=== PATIENT | female | born 1990 | race Caucasian/White ===

== ENCOUNTER 2017-09-22 11:25 | Emergency (ER) | payer OTHER ==
[2017-09-22 14:23] VITALS: BP 125/84
--- NOTE | 2017-09-22 14:55 | UC ---
Respiratory Complaint HPI - HPI Summary HPI Summary: 27 year old female presents with cough and chest congestion. - History of Current Complaint Chief Complaint: UCGeneralIllness Stated Complaint: DX W/WALKING PNEUMONIA, NOT FEELING BETTER Time Seen by Provider: 09/22/17 14:55 Hx Obtained From: Patient Hx Last Menstrual Period: UTERINE ABLASION Onset/Duration: Sudden Onset Severity Initially: Moderate Severity Currently: Moderate - Allergies/Home Medications Allergies/Adverse Reactions: Allergies Allergy/AdvReac Type Severity Reaction Status Date / Time No Known Allergies Allergy Verified 09/22/17 14:23 PMH/Surg Hx/FS Hx/Imm Hx Previously Healthy: Yes - Surgical History Surgical History: Yes Surgery Procedure, Year, and Place: D&C, T&A, UTERINE ABLASION, TUBALIGATION - Social History Alcohol Use: Rare Substance Use Type: None Smoking Status (MU): Never Smoked Tobacco - Immunization History Most Recent Influenza Vaccination: NOT CURRENT Review of Systems Constitutional: Negative Skin: Negative Eyes: Negative ENT: Negative Respiratory: Cough Cardiovascular: Negative Gastrointestinal: Negative Genitourinary: Negative Motor: Negative Neurovascular: Negative Musculoskeletal: Negative Neurological: Negative Psychological: Negative All Other Systems Reviewed And Are Negative: Yes Physical Exam Triage Information Reviewed: Yes Vital Signs: Initial Vital Signs Temp 36.6 C 09/22/17 14:19 Pulse 79 09/22/17 14:19 Resp 18 09/22/17 14:19 BP 125/84 09/22/17 14:19 Pulse Ox 100 09/22/17 14:19 Vital Signs Reviewed: Yes Eye Exam: Normal ENT Exam: Normal Dental Exam: Normal Neck exam: Normal Neck: Positive: 1 Respiratory: Positive: Rhonchi, Wheezing Cardiovascular Exam: Normal Abdominal Exam: Normal Musculoskeletal Exam: Normal Neurological Exam: Normal Psychological Exam: Normal Skin Exam: Normal UC Diagnostic Evaluation - Laboratory O2 Sat by Pulse Oximetry: 100 Respiratory Course/Dx - Differential Dx/Diagnosis Provider Diagnoses: bronchitis Discharge - Discharge Plan Condition: Stable Disposition: HOME Prescriptions: Albuterol HFA INHALER* [Ventolin HFA Inhaler*] 1 puff INH Q6H PRN #1 mdi PRN Reason: Wheezing Benzonatate [TESSALON 200 MG CAP] 200 mg PO Q8H PRN #30 cap PRN Reason: Cough guaiFENesin/CODIEN 100MG-10MG* [Robitussin AC 100Mg-10Mg*] 5 ml PO Q8H PRN #120 ml MDD 15 ML PRN Reason: Wheezing LoraTADine TAB(NF) [Claritin 10 MG TAB(NF)] 10 mg PO DAILY #30 tab Patient Education Materials: Acute Cough (ED), Wheezing (ED) Referrals: Bree Bender MD [Primary Care Provider] -
--- NOTE | 2017-09-22 15:22 | RAD ---
HISTORY: Cough COMPARISONS: October 29, 2012 VIEWS: 4: Frontal dual-energy and lateral views of the chest. FINDINGS: CARDIOMEDIASTINAL SILHOUETTE: The cardiomediastinal silhouette is normal. BRANDEN: The branden are normal. PLEURA: The costophrenic angles are sharp. No pleural abnormalities are noted. LUNG PARENCHYMA: The lungs are clear. ABDOMEN: The upper abdomen is clear. There is no subphrenic gas. BONES AND SOFT TISSUES: No bone or soft tissue abnormalities are noted. OTHER: None. IMPRESSION: NO ACTIVE CARDIOPULMONARY DISEASE.
== END 2017-09-22 15:58 | disposition home or self-care (01) ==
LOC: UCCORT 11:25
DX: J40 Bronchitis, not specified as acute or chronic (principal)
CPT/HCPCS: 71020; 99212; G0463

== ENCOUNTER 2019-04-28 15:54 | Emergency (ER) | payer OTHER ==
[2019-04-28 16:11] VITALS: BP 128/84
--- NOTE | 2019-04-28 16:21 | UC ---
UC General HPI - HPI Summary HPI Summary: about 3 weeks ago, pt was participating in a mud run at the [facility] when she fell injuring her tailbone. occurred 3 weeks ago. pt c/o ongoing pain. no numb/weakness to arms/legs. no abdominal pain. no saddle anesthesia or bowel/ bladder dysfunction. - History of Current Complaint Chief Complaint: UCGeneralIllness Stated Complaint: W/C TAILBONE INJ Time Seen by Provider: 04/28/19 16:14 Hx Obtained From: Patient Hx Last Menstrual Period: TUBAL LIGATION/ABLATION Onset/Duration: Sudden Onset Timing: Constant Pain Intensity: 4 Aggravating: pressure to area Associated Signs & Symptoms: Negative: Fever - Allergy/Home Medications Allergies/Adverse Reactions: Allergies Allergy/AdvReac Type Severity Reaction Status Date / Time No Known Allergies Allergy Verified 04/28/19 16:07 PMH/Surg Hx/FS Hx/Imm Hx Previously Healthy: Yes - Surgical History Surgical History: Yes Surgery Procedure, Year, and Place: D&C, T&A, UTERINE ABLASION, TUBALIGATION - Family History Known Family History: Positive: Non-Contributory - Social History Occupation: Employed Full-time Alcohol Use: Rare Substance Use Type: None Smoking Status (MU): Never Smoked Tobacco - Immunization History Most Recent Influenza Vaccination: NOT CURRENT Review of Systems All Other Systems Reviewed And Are Negative: No Constitutional: Negative: Fever Skin: Negative: Rash Musculoskeletal: Negative: Decreased ROM Neurological: Negative: Weakness, Paresthesia, Numbness Physical Exam Triage Information Reviewed: Yes Appearance: Well-Appearing Vital Signs: Initial Vital Signs Temp 98.2 F 04/28/19 16:07 Pulse 99 04/28/19 16:07 Resp 16 04/28/19 16:07 BP 128/84 04/28/19 16:07 Pulse Ox 100 04/28/19 16:07 Vital Signs Reviewed: Yes Respiratory: Positive: No respiratory distress Abdomen Description: Positive: Nontender, No Organomegaly, Soft Musculoskeletal: Positive: Other: - neck and back are without deformity or rash. pt is tender over the sacral-coccyx areas. No saddle anesthesia. ROM is intact. gross s/v/m is intact. steady gait. Neurological: Positive: Alert Psychological: Positive: Age Appropriate Behavior Skin Exam: Normal Skin: Negative: Rashes Diagnostics - Radiology No standard instances Radiology Interpretation Completed By: Radiologist - IMPRESSION: NO ACUTE OSSEOUS INJURY OF THE SACRUM AND COCCYX. PLAIN FILMS ARE RELATIVELY INSENSITIVE TO NONDISPLACED FRACTURES OF THE SACRUM AND COCCYX. IF THERE IS PERSISTENT CLINICAL CONCERN FOR SACROCOCCYGEAL OSSEOUS PATHOLOGY, BONE SCANNING MAY BE MORE SENSITIVE Course/Dx - Differential Dx - Multi-Symptom Differential Diagnoses: Other - no concern for infection. no overt fx on xray. - Diagnoses Provider Diagnosis: Tailbone injury Discharge - Sign-Out/Discharge Documenting (check all that apply): Patient Departure All imaging exams completed and their final reports reviewed: Yes - Discharge Plan Condition: Stable Disposition: HOME Prescriptions: Naproxen [Naprosyn 500 mg tab] 500 mg PO BID 5 Days #10 tablet Patient Education Materials: Coccyx Injury (ED) Referrals: Roge Reich MD [Medical Doctor] - As Soon As Possible Additional Instructions: CONSIDER USING A DONUT CUSHION WHILE SEATED. - Billing Disposition and Condition Condition: STABLE Disposition: Home
== END 2019-04-28 17:07 | disposition home or self-care (01) ==
LOC: UCCORT 15:54
DX: S39.92XA Unspecified injury of lower back, initial encounter (principal); W19.XXXA Unspecified fall, initial encounter; Y93.89 Activity, other specified; Y92.89 Other specified places as the place of occurrence of the external cause
CPT/HCPCS: 72220; 99212; G0463